=== PATIENT | female | born 1990 | race Caucasian/White ===

== ENCOUNTER → 2020-12-11 08:51 | Outpatient (BNVA) | payer MEDICAID, SELFPAY | PROVIDERS: Visit Provider Registered Nurse | DX: E11.9 Type 2 diabetes mellitus without complications (principal); I10 Essential (primary) hypertension; F33.1 Major depressive disorder, recurrent, moderate; F41.9 Anxiety disorder, unspecified; Z76.89 Persons encountering health services in other specified circumstances; F17.210 Nicotine dependence, cigarettes, uncomplicated | CPT/HCPCS: 80053; 83036; 85025 ==

== ENCOUNTER 2021-05-07 08:02 | Outpatient (CLI) | payer MEDICAID, SELFPAY ==
--- NOTE | 2021-05-07 08:09 | MM_ITS ---
WS: [id number] BILATERAL DIGITAL DIAGNOSTIC MAMMOGRAM MAMMOGRAPHY WITH CAD CLINICAL INFORMATION: BREAST LUMP TECHNIQUE: Bilateral CC, MLO, and ML views. FINDINGS: Scattered fibroglandular densities bilaterally. Palpable marker inner left breast. Underlying focal a symmetric density measuring 4.0 x 2.2 CM. This persists on spot compression views. Ultrasound is pend ing. Benign dystrophic and lucent centered calcifications right breast. ULTRASOUND BREAST LEFT TECHNIQUE: Ultrasound left breast focused area of concern. CLINICAL INFORMATION: BREAST LUMP COMPARISON: None. FINDINGS: Ultrasound left breast 9:00 position corresponding to the area of palpable concern 3 cm from the nipp le. Well-circumscribed mixed echogenicity lesion measuring approximately 1.5 x 1.7 x 0.8 cm in a supe rficial location. This may represent fibroadenolipoma in a patient this age but indeterminant and rec ommend further evaluation with ultrasound-guided biopsy. MM/[place] [id number] IMPRESSION: BI-RADS: 4-Suspicious Finding-Biopsy Should Be Considered FOLLOW UP: US Guided Biopsy Recommended RECOMMEND ULTRASOUND-GUIDED BIOPSY LEFT BREAST PALPABLE LESION
== END 2021-05-07 08:03 | disposition home or self-care (01) ==
LOC: RADSHAW 08:07
PROVIDERS: PCP Nurse Practitioner Family; Visit Provider Nurse Practitioner Family
DX: N63.10 Unspecified lump in the right breast, unspecified quadrant (principal); N63.25 Unspecified lump in the left breast, overlapping quadrants
CPT/HCPCS: 76642; 77066

== ENCOUNTER 2021-05-31 12:36 | Outpatient (CLI) | payer MEDICAID, SELFPAY ==
--- NOTE | 2021-05-31 13:00 | US_ITS ---
WS: [id number] ULTRASOUND-GUIDED LEFT BREAST BIOPSY CLINICAL INFORMATION: LESION COMPARISON: None. FINDINGS: The procedure including risks, benefits, and complications were discussed with the patient who agreed to proceed. Using sterile technique patient was prepped and draped in the usual sterile fashion. Aft er 1% lidocaine utilizing real-time ultrasound guidance 5 14-gauge cores were obtained of the left br east lesion at the 9 o'clock position. Subsequently a titanium clip was placed in the biopsy cavity. No immediate complications. Pathology demonstrates . Breast, left, mass , ultrasound-guided biopsy: -Benign breast tissue with fat necrosis and chronic inflammatory infiltrates. -No malignancy identified. US/[place] [id number] IMPRESSION: 1. Uncomplicated ultrasound-guided left breast biopsy. 2. The pathology demonstrates benign breast tissue with fat necrosis and chron ic inflammatory infiltrates. No malignancy. 3. Recommend 6 month follow-up left breast diagnostic mammography and ultrasou nd. BI-RADS: 2-Benign FOLLOW UP: 6 Month Follow-up
== END 2021-05-31 12:37 | disposition home or self-care (01) ==
LOC: RAD 12:37
PROVIDERS: PCP Nurse Practitioner Family; Visit Provider Nurse Practitioner Family
DX: N63.20 Unspecified lump in the left breast, unspecified quadrant (principal); N64.1 Fat necrosis of breast
CPT/HCPCS: 19083; 88305

== ENCOUNTER 2023-09-09 21:25 | Emergency (ER) | payer MEDICAID, SELFPAY ==
[2023-09-09 21:28] VITALS: BP 131/64; PULSE 72; RESP 17; TEMP 37; O2SAT 94; BMI 41.5
--- NOTE | 2023-09-09 21:28 | XRR_ITS ---
PROCEDURE INFORMATION: Exam: XR Chest Exam date and time: 09/09/2023 10:24 PM Age: 32 years old Clinical indication: Pain; Other: HTN; Additional info: Dizziness, HTN TECHNIQUE: Imaging protocol: Radiologic exam of the chest. Views: 1 view. COMPARISON: No relevant prior studies available. FINDINGS: Lungs: Unremarkable. No consolidation. Pleural spaces: Unremarkable. No pleural effusion. No pneumothorax. Heart/Mediastinum: Cardiac silhouette is magnified by portable thickening, likely mildly enlarged with suggestion of right atrial enlargement. Suggestion of mild vascular congestion Bones/joints: Unremarkable. XR/XR chest 1V portable [id number] IMPRESSION: Probable mild cardiac enlargement despite technical magnification. PA and lateral views may be considered for optimal assessment if clinically warranted.
--- NOTE | 2023-09-09 21:32 | ECG_ITS ---
[facility] Test Date: 2023-09-09 Pat Name: Re Seth Department: Room: Gender: Female Bilingual Trainer: : 1990 Requested By: Dylan Daniel Order Number: [id number] Alonso MD: Ken Frances M.D. Measurements Intervals [place] Rate: 63 P: 47 MO: 157 QRS: 60 QRSD: 111 T: 44 QT: 396 QTc: 407 Interpretive Statements SINUS RHYTHM INCOMPLETE RIGHT BUNDLE BRANCH BLOCK [90+ ms QRS DURATION, TERMINAL R IN V1/V2, 40+ ms S IN I/aVL/V4/V5/V6] No previous ECG available for comparison Electronically Signed On 09-10-2023 11:04:27 VETERINARY TECHNOLOGY INSTRUCTOR by Ken Frances M.D. [id number]
[2023-09-09 21:39] LABS: Basophils # 0.1 10^3/uL (0.0-0.1); Basophils % 0.5 %; Eosinophils # 0.3 10^3/uL (0.0-0.8); Eosinophils % 2.9 %; Hematocrit 35.3 % (36-47); Lymphocytes # 2.8 10^3/uL (0.8-4.8); Lymphocytes % 25.2 %; Mean Corpuscular HGB Conc 30.6 g/dL (30-55); Mean Corpuscular Hemoglobin 23.7 pg (27-33); Mean Corpuscular Volume 77.6 fl (85-98); Mean Platelet Volume 10.4 fL (7.4-10.4); Monocytes # 0.6 10^3/uL (0.2-0.9); Monocytes % 5.5 %; Neutrophils # 7.33 10^3/uL (1.8-7.7); Neutrophils % 65.5 %; Nucleated Red Blood Cells % 0 %; Platelet Count 246 10^3/cmm (157-399); Red Blood Count 4.55 10^6/uL (3.85-5.65); Red Cell Distribution Width 15.2 % (12.1-15.1)
--- NOTE | 2023-09-09 21:40 | CTR_ITS ---
PROCEDURE INFORMATION: Exam: CT Head Without Contrast Exam date and time: 09/09/2023 9:46 PM Age: 32 years old Clinical indication: Dizziness; Additional info: Dizziness, left side facial numbness TECHNIQUE: Imaging protocol: Computed tomography of the head without contrast. Radiation optimization: All CT scans at this facility use at least one of these dose optimization techniques: automated exposure control; mA and/or kV adjustment per patient size (includes targeted exams where dose is matched to clinical indication); or iterative reconstruction. COMPARISON: No relevant prior studies available. RADIATION DOSE METRICS: Total DLP (mGy-cm): 1056 FINDINGS: Brain: Normal. No hemorrhage. Unremarkable white matter. No mass effect. Cerebral ventricles: No ventriculomegaly. Paranasal sinuses: Visualized sinuses are unremarkable. No fluid levels. Mastoid air cells: Visualized mastoid air cells are well aerated. Bones/joints: Unremarkable. No acute fracture. Soft tissues: Unremarkable. CT/CT head wo con* [id number] IMPRESSION: No acute intracranial abnormality.
[2023-09-09 22:03] LABS: Alanine Aminotransferase 10 U/L (0-33); Albumin Level 3.8 g/dL (3.5-5.2); Alkaline Phosphatase 87 U/L (35-105); Aspartate Amino Transferase 9 U/L (0-32); Blood Urea Nitrogen 9 mg/dL (6-20); Carbon Dioxide 24 mmol/L (22-29); Chloride 104 mmol/L (98-107); Globulin 3.2 g/dL (1.3-4.6); Glomerular Filtration Rate 142.1 mL/min (90-130); Glucose 130 mg/dL (65-115); Magnesium 1.8 mg/dL (1.7-2.3); Osmolality Calculated 284 mOsm/kg (285-295); Sodium 137 mmol/L (136-145); Total Bilirubin 0.3 mg/dL (0.15-1.2)
--- NOTE | 2023-09-09 22:13 | ED_ITS ---
HPI - Neuro Symptoms/Deficit 2 General: Chief Complaint: Neuro Symptoms/Deficit Stated Complaint: dizziness Time Seen by Provider: 09/09/23 21:28 History of Present Illness: Patient presents to the ER with complaints of dizziness left-sided facial and arm numbness. Patient has a history of pseudoseizures which are brought on by stress and anxiety. Patient states he recently she has had a lot more stress and anxiety than normal and these been coming on more frequently and getting more severe. Patient had 1 approximately at 2 PM today. She says her said she had left facial drooping was unable to speak and she complains of left- sided facial and upper extremity decree sensation along with nausea vomiting and dizziness. Patient says all these have gotten better but have not went away yet. 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, without status epilepticus PTSD (post-traumatic stress disorder) Anxiety Depression Essential hypertension Surgical History Hx of section Hx of tonsillectomy Hx of cholecystectomy Family History Other Cancer Diabetes Hypertension Lung disease Uterine cancer Social History Smoking and tobacco/nicotine status: current every day tobacco/nicotine user cigarettes Packs smoked per day: 1 Physical Exam 2 Const: COMMON NORMALS: no acute distress, average body habitus, patient oriented x3, no limitations, healthy appearing, alert and well nourished HENMT: COMMON NORMALS: normocephalic, atraumatic, hearing grossly normal bilaterally, external ears normal, EAC's normal, Normal external nose present, moist oral mucous membranes and oropharynx normal HEAD & SCALP: normocephalic and atraumatic NOSE: Normal external nose present EXTERNAL EAR: Yes external ears normal EXTERNAL AUDITORY CANAL: EAC's normal Neck/C-Spine: COMMON NORMALS: full ROM, no lymphadenopathy, supple, no meningeal signs, no JVD and Thyroid normal THYROID: Thyroid normal Chest: COMMONS NORMALS: normal inspection of the chest and normal palpation of entire chest wall Resp: COMMON NORMALS: normal respiratory effort, No retractions, No use of accessory muscles and clear to auscultation bilaterally AUSCULTATION: clear to auscultation bilaterally Cardio: COMMON NORMALS: no JVD, regular rate, regular rhythm, S1 normal heart sound present, S2 normal heart sound present, No gallops present (Cardio), No clicks present (Cardio) and No murmurs present (Cardio) RATE: regular rate RHYTHM: regular rhythm HEART SOUNDS: S1 normal heart sound present and S2 normal heart sound present GI: COMMON NORMALS: Normal to inspection, nondistended, normoactive bowel sounds present, Soft to palpation, non-tender, No hepatosplenomegaly present and no masses PALPATION: Yes Soft to palpation and Yes No hepatosplenomegaly present Extremity: NARRATIVE EXTREMITY EXAM: No focal neurologic deficit noted Neuro: COMMON NORMALS: patient oriented x3 SENSORIUM/ORIENTATION: Yes alert MENINGEAL SIGNS: Yes no meningeal signs Course 2 Vital Signs: Vital signs: Vital Signs Temperature 98.6 F 09/09/23 21:28 Pulse Rate 79 09/09/23 23:51 Respiratory Rate 16 09/09/23 23:51 Blood Pressure 165/78 09/09/23 23:51 Pulse Oximetry 96 09/09/23 23:51 Oxygen Delivery Me thod Room Air 09/09/23 22:33 MDM - Neuro Symptoms/Deficit Medical Decision Making Patient presents to the ER with complaints of pseudoseizure and improving left- sided facial numbness and left-sided weakness. Patient had lab work performed that revealed patient was mildly anemic and possibly had a mild urinary tract infection. Chest x-ray was essentially negative as well as head CT. Patient will be placed on Cipro for her urinary tract infection be instructed to follow- up with her PCP on an as-needed basis. Differential Diagnosis Unlikely carpal tunnel syndrome, convulsions, delirium, subarachnoid hemorrhage, peripheral neuropathy, cerebrovascular accident, multiple sclerosis or transient cerebral ischemia Medical Records I reviewed the patient's medical records. Lab Data I reviewed the patient's lab results. 09/09/23 21:33 09/09/23 21:33 Radiology Impressions Chest X-Ray 09/09/23 21:28 IMPRESSION: Probable mild cardiac enlargement despite technical magnification. PA and lateral views may be considered for optimal assessment if clinically warranted. Head CT 09/09/23 21:40 IMPRESSION: No acute intracranial abnormality. Laboratory Results WBC 11.20 10^3/uL (3.29-11.43) 09/09/23 21: RBC 4.55 10^6/uL (3.85-5.65) 09/09/23 21: Hgb 10.80 g/dL (11.27-16.99) L 09/09/23 21: Hct 35.3 % (36-47) L 09/09/23 21: MCV 77.6 fl (85-98) L 09/09/23 21: MCH 23.7 pg (27-33) L 09/09/23 21: MCHC 30.6 g/dL (30-55) 09/09/23 21: RDW 15.2 % (12.1-15.1) H 09/09/23 21: Plt Count 246 10^3/cmm (157-399) 09/09/23 21: MPV 10.4 fL (7.4-10.4) 09/09/23 21: Neut % (Auto) 65.5 % 09/09/23 21: Lymph % (Auto) 25.2 % 09/09/23 21: [place] % (Auto) 5.5 % 09/09/23 21: Eos % (Auto) 2.9 % 09/09/23: Baso % (Auto) 0.5 % 09/09/23: Neut # (Auto) 7.33 10^3/uL (1.8-7.7) 09/09/23 21: Lymph # (Auto) 2.8 10^3/uL (0.8-4.8) 09/09/23 21: [place] # (Auto) 0.6 10^3/uL (0.2-0.9) 09/09/23 21: Eos # (Auto) 0.3 10^3/uL (0.0-0.8) 09/09/23 21: Baso # (Auto) 0.1 10^3/uL (0.0-0.1) 09/09/23 21: Nucleated RBC % (auto) 0 % 09/09/23 21:33 Nucleated RBCs # 0.0 /100WBC 09/09/23 21:33 Sodium 137 mmol/L (136-145) 09/09/23 21:33 Potassium 4.0 mmol/L (3.5-5.1) 09/09/23 21:33 Chloride 104 mmol/L (98-107) 09/09/23 21:33 Carbon Dioxide 24 mmol/L (22-29) 09/09/23 21:33 Anion Gap 13.0 (5-19) 09/09/23 21:33 BUN 9 mg/dL (6-20) 09/09/23 21:33 Creatinine 0.5 mg/dL (0.5-0.9) 09/09/23 21:33 GFR Calculation 142.1 mL/min (90-130) H 09/09/23 21: Glucose 130 mg/dL (65-115) H 09/09/23 21:33 Calculated Osmolality 284 mOsm/kg (285-295) L 09/09/23 21:33 Calcium 9.0 mg/dL (8.5-10.5) 09/09/23 21: Magnesium 1.8 mg/dL (1.7-2.3) 09/09/23 21:33 Total Bilirubin 0.3 mg/dL (0.15-1.2) 09/09/23 21:33 AST 9 U/L (0-32) 09/09/23 21:33 ALT 10 U/L (0-33) 09/09/23 21:33 Alkaline Phosphatase 87 U/L (35-105) 09/09/23 21: C-Reactive Protein 15.8 mg/L (0.0-4.9) H 09/09/23 21:33 Total Protein 7.0 g/dL (6.6-8.7) 09/09/23 21: Albumin 3.8 g/dL (3.5-5.2) 09/09/23 21: Globulin 3.2 g/dL (1.3-4.6) 09/09/23 21: Prolactin 21.81 ng/mL (4.8-23.3) 09/09/23 21:33 Urine Color Yellow (Yellow) 09/09/23 22:25 Urine Appearance Clear (CLEAR) 09/09/23 22:25 Urine pH 5 (5-7) 09/09/23 22:25 Ur Specific [place] 1.020 (1.005-1.030) 09/09/23 22:25 Urine Protein Trace (Negative) 09/09/23 22: Urine Glucose (UA) Norm (Normal) 09/09/23 22:25 Urine Ketones 1+ (Negative) H 09/09/23 22:25 Urine Blood 3+ (Negative) H 09/09/23 22:25 Urine Nitrate Negative (Negative) 09/09/23 22: Urine Bilirubin Neg (Negative) 09/09/23 22: Urine Urobilinogen Norm mg/dL (Negative) 09/09/23 22:25 Ur Leukocyte Esterase Trace (Negative) H 09/09/23 22:25 Urine RBC 0-4 /hpf (0-2) H 09/09/23 22:25 Urine WBC 10-15 /hpf (0-5) H 09/09/23 22:25 Ur Squamous Epith Cells 10-15 /hpf (0-5) H 09/09/23 22: Amorphous Sediment Not Reportable 09/09/23 22:25 Urine Bacteria Trace /hpf (NONE) 09/09/23 22: Urine Mucus 1+ /hpf 09/09/23 22:25 All radiology interpretation(s) finalized by discharge EKG Data EKG 1: I personally reviewed and interpreted this EKG as follows: EKG interpretation date: 09/09/23 EKG interpretation time: 21:32 Prior EKG tracings: not available for review Interpretation: EKG shows ventricular rate 63 bpm, IN interval 157, QRS duration 111, QTc of Discharge Plan Discharge Patient Disposition: Home Clinical Impression: Psychogenic nonepileptic seizure Anemia Qualifiers: Anemia type: unspecified type Qualified Code(s): D64.9 - Anemia, unspecified Urinary tract infection Qualifiers: Urinary tract infection type: acute cystitis Hematuria presence: with hematuria Qualified Code(s): N30.01 - Acute cystitis with hematuria Condition: Stable Prescriptions: New Cipro 500 mg tablet 500 mg PO Q12H Qty: 14 0RF No Action metformin 500 mg tablet 1,000 mg PO BID glyburide 5 mg tablet 5 mg PO BID paroxetine HCl 20 mg tablet 20 mg PO DAILY omeprazole 40 mg capsule,delayed release(DR/EC) 40 mg PO DAILY lisinopril-hydrochlorothiazide 20-12.5 mg tablet 1 tab PO DAILY ferrous sulfate [Nunu-Time] 325 mg (65 mg iron) tablet 325 mg PO DAILY aripiprazole 5 mg tablet See Rx Instructions PO DAILY Rx Instructions: 1&1.5 PO daily; labetalol 100 mg tablet 100 mg PO BID alprazolam 0.5 mg tablet 0.5 mg PO TID Lantus Solostar U-100 Insulin 100 unit/mL (3 mL) insulin pen 10 unit SUBCUT DAILY Rx Instructions: 10 units at bedtime Jardiance 10 mg tablet 10 mg PO DAILY Qty: 90 0RF Discharge Orders: Discharge ED (Routine); Ordered 09/09/23 Ordered By: Dylan Daniel Referrals: Patty Oliva FNP [Primary Care Provider] - 1 week Patient Instructions: Urinary Tract Infection in Women (ED), Anemia (ED) Activity Restrictions/Additional Instructions: Please take all your antibiotic as directed. Please follow-up with your family practice physician for further evaluation and testing as needed. Coding Level of Care Code ED Composition Weatherboard Installer for Dom Tapia
[2023-09-09 22:28] LABS: C Reactive Protein 15.8 mg/L (0.0-4.9)
[2023-09-09 22:33] VITALS: BP 135/117; PULSE 69; RESP 20; O2SAT 96
[2023-09-09 22:56] LABS: Add Urine Culture? No; Add Urine Microscopic? YES; Bacteria Urine TRACE /hpf; Bilirubin Urine Neg (Negative); Blood Urine 3+ (Negative); Glucose Urine UA Norm (Normal); Ketones Urine 1+ (Negative); Leukocyte Esterase Urine Trace (Negative); Mucus Urine 1+ /hpf; Nitrate Urine Negative (Negative); Protein Urine Trace (Negative); RBC Urine 0-4 /hpf (0-2); Urine Appearance Clear (CLEAR); Urine Color Yellow (Yellow); Urobilinogen Urine Norm (Negative); pH Urine 5 (5-7)
[2023-09-09 23:03] VITALS: BP 170/77; PULSE 67; RESP 20; O2SAT 95
[2023-09-09 23:20] LABS: Prolactin 21.81 ng/mL (4.8-23.3)
[2023-09-09 23:30] VITALS: BP 165/78; PULSE 66; RESP 18; O2SAT 95
[2023-09-09] MEDS: ciprofloxacin 500 mg Tablet PO (23:47)
[2023-09-09 23:51] VITALS: BP 165/78; PULSE 79; RESP 16; O2SAT 96
== END 2023-09-09 23:52 | disposition home or self-care (01) ==
PROVIDERS: Emergency Provider Emergency Medicine; PCP Nurse Practitioner Family
DX: D64.9 Anemia, unspecified (principal); N30.01 Acute cystitis with hematuria
CPT/HCPCS: 70450; 71045; 80053; 81001; 83735; 84146; 85025; 86140; 93005; 99285

== ENCOUNTER → 2024-02-29 13:30 | Outpatient (BNVA) | payer MEDICAID, SELFPAY | PROVIDERS: PCP Nurse Practitioner Family; Referring Provider Nurse Practitioner Family; Visit Provider Internal Medicine | DX: I10 Essential (primary) hypertension (principal); R06.02 Shortness of breath; E11.9 Type 2 diabetes mellitus without complications; Z79.84 Long term (current) use of oral hypoglycemic drugs; R00.2 Palpitations; Z72.0 Tobacco use; R07.89 Other chest pain | CPT/HCPCS: 99204 ==

== ENCOUNTER 2024-03-18 13:01 | Outpatient (CLI) | payer MEDICAID, SELFPAY ==
--- NOTE | 2024-03-18 13:30 | USCV_ITS ---
Re Seth Age: 33 Gender: F : 1990 Exam Date: 03/18/2024 13:46 Ordering Phys: Ken Frances M.D ([email or web address]) Technologist: Jeferson Bianchi [place] [facility] [place]: sob BP: 165 / 78 HR: 67 Rhythm: Sinus Technical Quality: Adequate MEASUREMENTS (Male / Female) Normal Values 2D ECHO LV Diastolic Diameter PLAX 5.3 cm 4.2 - 5.9 / 3.9 - 5.3 cm IVS Diastolic Thickness 1.1 cm 0.6 - 1.0 / 0.6 - 0.9 cm IVS Systolic Thickness 1.5 cm LVPW Diastolic Thickness 1.4 cm 0.6 - 1.0 / 0.6 - 0.9 cm LVPW Systolic Thickness 1.9 cm LVOT Diameter 2.1 cm LV Ejection Fraction 2D Teich 60.9 % LV Ejection Fraction MOD 4C 56.3 % LV Ejection Fraction MOD 2C 66.5 % LV Ejection Fraction 2C AL 68.5 % LA Diameter 3.5 cm RA Systolic Volume 4C AL 46.9 ml RA Systolic Volume 4C MOD 49.1 ml LA Sys Volume AL 59.1 cm cubed LA Sys Volume Index AL 22.7 cm cubed/m squared Aorta at Sinotubular Diameter 2.4 cm IVC Diameter 1.4 cm M-MODE LA Ao Ratio MM 1.7 AV Cusp Separation MM 1.8 cm DOPPLER AV Peak Velocity 173.0 cm/s LVOT Peak Velocity 139.0 cm/s AV Area Cont Eq vti 2.9 cm squared AV Area Cont Eq pk 2.9 cm squared MV Peak Velocity 117.0 cm/s MV Area PHT 4.1 cm squared Mitral E to A Ratio 1.4 TR Peak Velocity 294.0 cm/s TR Peak Gradient 34.6 mmHg TR Mean Velocity 225.0 cm/s TR Mean Gradient 22.2 mmHg TR Velocity Time Integral 69.8 cm PV Peak Velocity 105.3 cm/s RV Ejection Time 0.3 s FINDINGS Left Ventricle Left ventricle is normal size. LV systolic function is normal with EF of 55 to 60%. No regional regional wall motion abnormalities are seen Right Ventricle Normal in size and function Right Atrium Normal in size Left Atrium Normal in size Mitral Valve Structurally normal mitral valve. Mild mitral regurgitation Aortic Valve Structurally normal aortic valve. No significant stenosis or regurgitation. Tricuspid Valve Mild tricuspid regurgitation. Insufficient TR jet to evaluate RVSP. Pulmonic Valve Not well visualized Pericardium Normal Aorta Normal in size IVC Appears to be normal CONCLUSIONS LV systolic function is normal with EF of 55-60% Mild mitral regurgitation Mild tricuspid regurgitation No comparison studies are available. Ken Frances MD (Electronically Signed) Final Date: 30 March 2024 17:42 S
== END 2024-03-18 13:02 | disposition home or self-care (01) ==
LOC: RAD 13:01
PROVIDERS: PCP Nurse Practitioner Family; Visit Provider Internal Medicine
DX: R06.02 Shortness of breath (principal); I08.1 Rheumatic disorders of both mitral and tricuspid valves
CPT/HCPCS: 93306

== ENCOUNTER → 2024-05-16 14:45 | Outpatient (BNVA) | payer MEDICAID, SELFPAY | PROVIDERS: PCP Nurse Practitioner Family; Visit Provider Internal Medicine | DX: R06.02 Shortness of breath (principal); I10 Essential (primary) hypertension; F17.210 Nicotine dependence, cigarettes, uncomplicated; E11.9 Type 2 diabetes mellitus without complications; R00.2 Palpitations | CPT/HCPCS: 99214 ==